=== PATIENT | female | born 1950 | race Caucasian/White ===

== ENCOUNTER 2022-10-11 13:41 | Outpatient (REF) | payer MEDICARE, BC, SELFPAY ==
[2022-10-11 14:59] LABS: Abs Immature Grans 0.03 10^3/uL (0.0-0.06); Absolute Eosinophil Count 0.28 10^3/uL (0.0-0.7); Absolute Lymphocyte Count 1.89 10^3/uL (1.2-3.4); Absolute Neutrophil Count 4.55 10^3/uL (1.2-6.7); Basophils % 1.3; Eosinophils % 3.7; HCT 45.1 % (36.0-46.0); HGB 14.7 g/dL (11.2-15.7); Immature Grans % 0.4; MCH 33.2 pg (27.0-33.0); MCHC 32.6 % (32.0-36.0); MCV 102 fL (80-95); MPV 10.4 fL (8.0-11.0); Monocytes % 9.3; Neutrophils % 60.3; Platelet Count 121 10^3/uL (130-400); RBC 4.43 10^6/uL (3.93-5.22); RDW 11.9 % (11.7-14.6); RDW-SD 45.1 fL; WBC 7.55 10^3/uL (4.4-10.8)
[2022-10-11 16:21] LABS: ALT 98 U/L (14-59); AST 64 U/L (15-37); Albumin 4.1 g/dL (3.4-5.0); Alkaline Phosphatase 107 U/L (46-116); Anion Gap 11.2 mmol/L (3-11); BUN 7 mg/dL (7-18); Bilirubin, Total 0.7 mg/dL (0.2-1.0); CO2 25.8 mmol/L (21.0-32.0); CREATININE 0.9 mg/dL (0.55-1.02); Calculated LDL 146 mg/dL (<100); Chloride 100 mmol/L (98-107); Cholesterol 217 mg/dL (<200); Estimated GFR 67.92 (mL/min/1.73m2); Glucose 109 mg/dL (74-106); HDL Cholesterol 56 mg/dL (40-60); Sodium 137 mmol/L (136-145); TSH 1.19 uIU/mL (0.36-3.74); Total Protein 8.3 g/dL (6.4-8.2); Triglyceride 79 mg/dL (<150)
== END 2022-10-11 13:42 | disposition home or self-care (01) ==
LOC: NCHCN 13:41
PROVIDERS: PCP Nurse Practitioner Family; Visit Provider Family Medicine
DX: R53.83 Other fatigue (principal); R53.81 Other malaise; R79.89 Other specified abnormal findings of blood chemistry
CPT/HCPCS: 80053; 80061; 84443; 85025